=== PATIENT | female | born 1965 | race Caucasian/White ===

== ENCOUNTER 2024-11-26 09:50 | Outpatient (CLI) | payer MEDICARE, MEDICAID ==
--- NOTE | 2024-11-26 18:07 | RADIOLOGY REPORT ---
CT Chest without intravenous contrast INDICATION: HX TOBACCO USE TECHNIQUE: Multidetector spiral CT of the chest was performed from the lung apices to the upper abdom en. Axial, coronal and sagittal multiplanar reformats were performed. Radiation dose : Chest: CTDI volume is 1 mGy. Dose-length product is 62 mGy*cm The dose indicators for CT are the volume computed tomography (CT) dose index (CTDIvol) and the dose length product (DLP), and are measured in units of mGy and mGy-cm, respectively. These indicators are not patient dose, but values generated from the CT scanner acquisition factors. The report includes radiation exposure data for exposures received during this examination. Comparison: None Findings: Lower neck: Normal thyroid. Lungs: Atelectasis and scarring in the lung bases. Bronchiectasis with mucous plugging and mild cons olidation in the lingula. Heart/Vascular Structures: Normal heart size. No pericardial effusion. Lymph Nodes: No adenopathy Pleura: No pleural effusion or significant pneumothorax. Musculoskeletal: No acute osseous abnormality. Soft tissues: Normal. Upper abdomen: Limited portions of the upper abdomen are unremarkable. IMPRESSION: 1. Bronchiectasis with mucous plugging and mild consolidation in the lingula raising concern for aty pical infection to include mycobacterial infection. Clinical correlation and continued follow-up is recommended. Lung rads 3-probably benign. Recommend follow-up chest CT in 3 to 6 months. Radiation optimization: All CT scans at this facility use at least one of these dose optimization ratna hniques: Automated exposure control mA and/or kV adjustment per patient size (includes targeted exams where dose is matched to clinical indication) or iterative reconstruction. HS:Y
== END 2024-11-26 23:59 | disposition home or self-care (01) ==
LOC: RAD 09:50
PROVIDERS: ATTEND Family Medicine
DX: Z12.2 Encounter for screening for malignant neoplasm of respiratory organs (principal); Z87.891 Personal history of nicotine dependence; J98.11 Atelectasis; J47.9 Bronchiectasis, uncomplicated; J98.4 Other disorders of lung
CPT/HCPCS: 71271

== ENCOUNTER 2025-03-23 11:56 | Outpatient (CLI) | payer MEDICARE, MEDICAID ==
[2025-03-23 12:50] LABS: CREATININE 0.55 MG/DL (0.40-0.90); TOTAL CARBON DIOXIDE 30.3 MMOL/L (24-32); eGFR > 90 ML/MIN
== END 2025-03-23 23:59 | disposition home or self-care (01) ==
LOC: LAB 11:56
PROVIDERS: ATTEND Family Medicine
DX: G35.D Multiple sclerosis, unspecified (principal)
CPT/HCPCS: 36415; 80053

== ENCOUNTER 2025-03-30 13:58 | Outpatient (CLI) | payer MEDICARE, MEDICAID ==
--- NOTE | 2025-03-30 16:24 | RADIOLOGY REPORT ---
PROCEDURE: MR MRI HEAD Indication: MULTIPLE SCLEROSIS COMPARISON: None TECHNIQUE: Multiplanar multisequence images of the brain are obtained with and without contrast. FINDINGS: There is no abnormal diffusion restriction. There are moderate periventricular and subcortical white matter T2 and FLAIR hyperintense changes. Some of this is oriented along the callososeptal interface. There is m moderate global cerebral volume loss. There is no abnormal intracranial enhancement. There is no intracranial hemorrhage. No extra-axial fluid collection, mass effect or midline shift. The ventricles are midline and normal in size. The cisterns are patent. Normal intracranial flow voids are preserved. No abnormal susceptibility signal. The sinuses and mastoids are well pneumatized. The visualized orbits are unremarkable. IMPRESSION: No acute cerebrovascular ischemia. Moderate periventricular and subcortical white matter T2/FLAIR hyperintense changes which could be secondary to combination of chronic microvascular disease, demyelinating disease No abnormal intracranial enhancement to indicate imaging features of active demyelinating disease.
--- NOTE | 2025-03-30 18:28 | RADIOLOGY REPORT ---
PROCEDURE: MR MRI C SPINE Indication: MULTIPLE SCLEROSIS COMPARISON: None TECHNIQUE: Multiplanar multisequence images of the the cervical spine are obtained with contrast. FINDINGS: Examination degraded by motion. The cervical vertebral body heights are maintained. There is moderate multilevel disc space narrowing and desiccation. No abnormal marrow edema. Increased T2 signal within the coronary approximately C7/ T1 level measuring 12 x 3 mm. No abnormal cord enhancement seen. C2-3: Small disc osteophyte complex. No spinal canal stenosis. Llxe-we-wpmbiotp left neural foraminal stenosis. C3-4: Small disc osteophyte narrowing ventral and dorsal CSF spaces. Thecal sac measures 10 mm AP. No spinal canal stenosis. Severe left and ptfz-ft-kcbndagh right neural foraminal stenosis. C4-5: Small disc osteophyte complex. Narrowing of the ventral and dorsal CSF spaces. Thecal sac measures 9 mm AP. Mild spinal canal stenosis. Moderate bilateral neural foraminal stenosis. C5-6: Small disc osteophyte complex narrowing the ventral and dorsal CSF spaces. Thecal sac measures 8 mm AP. Hqod-wg-qxgmsvtb spinal canal stenosis. Moderate bilateral neural foraminal stenosis. C6-7: Small disc osteophyte complex. Thecal sac measures 9 mm AP. Mild spinal canal stenosis. Mild bilateral neural foraminal stenosis. C7-T1: No spinal canal or neural foraminal stenosis. IMPRESSION: Examination degraded by motion. No abnormal cord enhancement seen. Moderate cervical degenerative disc disease Increased T2 signal within the cord at C7/T1 measuring 12 x 3 mm. This could be secondary to demyelinating disease. There is no enhancement to indicate active demyelinating disease. Other considerations include cord myelomalacia. Fjis-xq-rvyqvskh spinal canal stenosis at C5-6. Mild spinal canal stenosis C6- 7, C4-5. Multilevel neural foraminal stenosis as described.
[2025-03-30] MEDS ORDERED: GADOTERATE MEGLUMINE 7.5 MMOL/15 ML VIAL IV ONE (18:35)
== END 2025-03-30 23:59 | disposition home or self-care (01) ==
LOC: MRI 13:58
PROVIDERS: ATTEND Neuromusculoskeletal Medicine & OMM
DX: M50.30 Other cervical disc degeneration, unspecified cervical region (principal); G35.D Multiple sclerosis, unspecified; R90.82 White matter disease, unspecified; M25.78 Osteophyte, vertebrae; M48.02 Spinal stenosis, cervical region
CPT/HCPCS: 70553; 72156; A9575

== ENCOUNTER 2025-04-09 09:24 | Outpatient (CLI) | payer MEDICARE, MEDICAID ==
--- NOTE | 2025-04-09 12:10 | RADIOLOGY REPORT ---
PROCEDURE: MR MRI THORACIC SPINE Indication: MULTIPLE SCLEROSIS COMPARISON: MRI cervical spine from 03/30/2025. TECHNIQUE: Multiplanar multisequence images of the the thoracic spine are obtained with and without contrast. FINDINGS: The Thoracic vertebral body heights are maintained. Hupq-cw-cxuyywnd Thoracic multilevel disc space narrowing. Mild thoracic levocurvature. There are small to moderate disc protrusions at , T8-9, T9-10, T10-11, T11-12. There is no high-grade thoracic spinal canal stenosis. The thoracic cord is normal in morphology and signal. Redemonstration of against slightly increased T2 signal within the cord at C7/T1. Otherwise, there is no definitive abnormal T2 signal within the thoracic cord. No abnormal thoracic cord enhancement. No abnormal thoracic marrow enhancement. IMPRESSION: Mgja-lp-wccattum thoracic degenerative disc disease. No high-grade thoracic spinal canal, neural foraminal stenosis. Redemonstration of against slightly increased T2 signal within the cord at C7/T1. Otherwise, there is no definitive abnormal T2 signal within the thoracic cord. No abnormal thoracic cord enhancement.
[2025-04-09] MEDS ORDERED: GADOTERATE MEGLUMINE 7.5 MMOL/15 ML VIAL IV ONE (12:41)
== END 2025-04-09 23:59 | disposition home or self-care (01) ==
LOC: MRI 09:24
PROVIDERS: ATTEND Neuromusculoskeletal Medicine & OMM
DX: M51.34 Other intervertebral disc degeneration, thoracic region (principal); G35.D Multiple sclerosis, unspecified; M43.8X4 Other specified deforming dorsopathies, thoracic region
CPT/HCPCS: 72157; A9575